=== PATIENT | female | born 1955 | race Caucasian/White ===

== ENCOUNTER 2023-12-03 11:44 | Observation (INO) ==
[2023-12-03] MEDS: ASPIRIN CHEW 324 MG PO STA (12:32)
[2023-12-03 13:02] LABS: Basophils # (auto) 0.04 K/uL (0.00-0.20); Basophils % (auto) 0.7 %; Eosinophils % (auto) 1.8 %; Hematocrit (blood only) 39.5 % (37.0-47.0); Hemoglobin 13.1 g/dl (12.0-16.0); Immature Granulocytes # (auto) 0.01 K/uL (0.01-0.20); Immature Granulocytes % (auto) 0.2 %; Lymphocytes % (auto) 31.3 %; Mean Corpuscular Hemoglobin 30.7 pg (25.0-34.0); Mean Corpuscular Hgb Conc 33.2 g/dL (32.0-36.0); Mean Corpuscular Volume 92.5 fL (80.0-100.0); Mean Platelet Volume 10.3 fL (9.4-12.4); Monocytes # (auto) 0.49 K/uL (0.11-0.59); Neutrophils # (auto) 3.09 K/uL (1.40-6.50); Platelet Count 296 K/uL (130-400); RDW Coefficient of Variation 12.3 % (11.5-14.5); RDW Standard Deviation 41.7 fL (36.4-46.3); Red Blood Count 4.27 M/uL (4.20-5.40); White Blood Count 5.43 K/ul (4.8-10.8)
--- NOTE | 2023-12-03 13:25 | XRay Report ---
XR chest 1V portable CLINICAL HISTORY: Chest pain, nonspecific COMPARISON STUDY: No previous studies for comparison. FINDINGS: Lung volumes are normal. Lungs are clear. There is no pneumothorax or pleural effusion. Car diac size is normal. Mediastinal contours are normal. There is no evidence for pulmonary edema. IMPRESSION: No acute cardiopulmonary findings. ACT 112: Negative or not required by law. Electronically signed by: Judah Walton M.D. 12/03/2023 1:24 PM
[2023-12-03 13:43] LABS: D Dimer 320 ug/L FEU (0-500); Partial Thromboplastin Time 28 Seconds (21-31); Prothrombin Time 11.1 Seconds (9.0-12.0)
--- NOTE | 2023-12-03 14:19 | Electrocardiogram Report ---
Test Reason : Blood Pressure : / mmHG Vent. Rate : 087 BPM Atrial Rate : 087 BPM P-R Int : 158 ms QRS Dur : 082 ms QT Int : 362 ms P-R-T Axes : 075 -04 081 degrees QTc Int : 435 ms Normal sinus rhythm with sinus arrhythmia Normal ECG No previous ECGs available Confirmed by Dedrick Goodman ([id number]) on 12/03/2023 2:18:47 PM Referred By: Confirmed By:Dedrick Goodman
[2023-12-03 14:38] LABS: Potassium 4.2 mmol/L (3.5-5.1)
[2023-12-03 14:44] LABS: BUN Creatinine Ratio 17.6 (10-20); Creatinine Clr Calc Pharmacy 59.3 ml/min; Est GFR (African American) 76.2 ml/min; Est GFR (Non-African American) 65.7 ml/min
[2023-12-03 14:49] LABS: Troponin I High Sensitivity 16.3 pg/ml (0-14)
--- NOTE | 2023-12-03 16:58 | History & Physical Report ---
Date of Service December 03, 2023 Assessment & Plan (1) Paroxysmal supraventricular tachycardia: (2) Elevated troponin: Plan: Patient is 68 year old female with PMH HTN, anxiety, depression presented to ER with complaint of palpitations this morning. EMS noted patient to be in SVT and patient was given adenosine 6 mg and an additional 12 mg with conversion to sinus rhythm In ER patient currently asymptomatic. Current sinus rhythm Troponin: 16--> 74 Suspect elevated troponin secondary to tachycardia, demand ischemia Trend troponin Echo TSH pending EKG in AM Cardiology consult. Dr. Ribeiro saw patient and recommended starting metoprolol daily CBC, BMP in a.m. (3) HTN (hypertension): Plan: BP is elevated in ER 150/92 Continue home olmesartan Monitor BP (4) Anxiety and depression: Plan: Chronic, stable Continue fluoxetine DVT Prophylaxis SCDs Full Code as per discussion with pt Follows with Dr Kiser for routine care Pt was seen and care coordinated with Dr Emanuel. See addendum I spent a total of 75 minutes reviewing notes, outpatient records, labs, medication, coordinating, documenting and providing care for this patient excluding time spent in the performance of separately billed services. History of Present Illness Chief Complaint: palpitations Primary Care Provider: Maryanne Kiser MD Patient is 68 year old female with PMH HTN, anxiety, depression presented to ER with complaint of palpitations. History obtained from patient as well as outpatient chart review. Patient states this morning around 9:30 AM she was moving and table when she had sudden onset of palpitations and dizziness. She reports she sat down and symptoms did not resolve. She reports she had a neighbor come over who is a snack steward who checked her pulse and it was reported to be very tachycardic and EMS was called. There is reported EMS performed EKG which showed SVT and patient was given adenosine 6 mg and an additional 12 mg with conversion to sinus rhythm. Patient states after that palpitations and dizziness resolved. Currently reports is asymptomatic. Patient denies any associated chest pain, syncope, diaphoresis, SOB. States drinks 3 glasses iced tea daily. Yesterday and today had one cup of blueberry tea. Denies decongestant use. Denies fever/chills, diaphoresis, N/V/D/C, QUIÑONES, vision changes, neck pain, orthopnea, cough, sore throat, otalgia, rhinorrhea, abdominal pain, paresthesias, weakness, extremity edema, rashes, urinary symptoms. Allergies Allergy/AdvReac Type Severity Reaction Status Date / Time Sulfa (Sulfonamide Allergy Intermediate Hives Verified 12/03/23 16:32 Antibiotics) erythromycin base Allergy Unknown CAN'T Verified 12/03/23 16:33 REMEMBER Home Medications Medication Instructions Recorded Confirmed Type fluoxetine 10 mg capsule 10 mg PO HS 12/03/23 12/03/23 History fluoxetine 20 mg capsule 20 mg PO HS 12/03/23 12/03/23 History olmesartan 5 mg tablet 5 mg PO HS 12/03/23 12/03/23 History Past Med/Surg History Medical History Anxiety and depression HTN (hypertension) Surgical History History of colonoscopy Family History Other Diabetes Hypertension Social History Smoking Status: Never smoker Second Hand Exposure: No; Do You Dip or Chew Tobacco: No; Hx Alcohol Use: No Hx Substance Use: No Preferred Language: Stateless Communication Ability: Effective Corporate Accounting Manager Required: No Beliefs That Will Affect Care: None Current Living Situation: Spouse and Family Other Information That Helps Us Care for You: No Feels Safe at Home: Yes Safety Concerns: Feels Safe At This Time Assistive Devices: None Review of Systems Review of Systems: All systems reviewed & are unremarkable except as noted in HPI & below Physical Exam Physical Exam: General: no distress, WDWN Head: normocephalic, atraumatic Eyes: conjunctiva non-injected, anicteric ENT: normal inspection external ears, nose, mucous membranes moist Neck: supple, trachea midline Lungs: clear, no respiratory distress, no wheezing/rhonchi/rales CV: RRR, no murmur, no pretibial edema Abd: normal BS, soft, non-tender Ext: no cyanosis, no calf tenderness Neuro: A&O x 3, no focal deficits noted, normal affect Skin: warm, dry Results & Data Results & Data Vital Signs (Past 12 Hours) Vital Signs Temp Pulse Pulse Resp BP BP Pulse Ox 12/03/23 16:30 66 12/03/23 16:04 66 18 150/92 H 98 12/03/23 14:11 69 16 138/84 97 12/03/23 12:30 87 12/03/23 11:57 100 12/03/23 11:57 37.1 C 90 22 146/91 H 100 O2 Del Method 12/03/23 16:30 12/03/23 16:04 Room Air 12/03/23 14:11 Room Air 12/03/23 12:30 12/03/23 11:57 Room Air 12/03/23 11:57 Room Air Laboratory Results Short CBC 12/03/23 Range/Units 11:50 WBC 5.43 (4.8-10.8) K/ul Hgb 13.1 (12.0-16.0) g/dl Hct 39.5 (37.0-47.0) % Plt Count 296 (130-400) K/uL BMP 12/03/23 11:50 Sodium 140 Potassium 4.2 Chloride 106 Carbon Dioxide 27 BUN 16 Creatinine 0.91 Glucose 111 H Calcium 10.0 Diagnostic Findings Chest X-Ray 12/03/23 12:21 XR chest 1V portable CLINICAL HISTORY: Chest pain, nonspecific COMPARISON STUDY: No previous studies for comparison. FINDINGS: Lung volumes are normal. Lungs are clear. There is no pneumothorax or pleural effusion. Cardiac size is normal. Mediastinal contours are normal. There is no evidence for pulmonary edema. IMPRESSION: No acute cardiopulmonary findings. ACT 112: Negative or not required by law. Electronically signed by: Judah Walton M.D. 12/03/2023 1:24 PM ECG Additional Comments: Normal sinus rhythm, rate 87, no significant ST changes noted per my interpretation Supervising Physician Co-Signing Physician Notes I have seen and examined the patient and have discussed the case with the provider above. I have reviewed the advanced practitioner's documentation, and I agree with, and take responsibility for that plan of care. Patient is 68-year-old female with no history of SVT who presented to the ER via EMS with SVT. This started this morning when she was moving piece of furniture. She has no chest pain or shortness of breath and was not feeling ill prior to this. History is otherwise noted above. Cardiology consulted and beta-sujata added to medical regimen. She is hemodynamically stable and afebrile and oxygenating well on room air. She is mentating clearly. Cardiac assessment reveals S1-S2 heard with regular rate and rhythm and no evidence of murmurs gallops or rubs. There is no peripheral edema. Physical exam is otherwise noted above. Workup today reveals a normal CBC, normal coag panel, normal CHEM panel. She does have evidence of a rising highly sensitive troponin likely a sequelae of her tachycardia earlier in the day. She remains chest pain-free and EKG revealed sinus rhythm with no evidence of active ischemia. Echo pending for morning. Continue telemetry monitoring overnight. DO Adelfo
--- NOTE | 2023-12-03 17:39 | Cardiology Consultation ---
Date of Consultation December 03, 2023 Assessment & Plan (1) Paroxysmal supraventricular tachycardia: (2) Elevated troponin: (3) HTN (hypertension): Plan 68-year-old female with underlying history of hypertension but no prior history of cardiac disease who developed sudden onset of tachypalpitations. Mild lightheadedness and chest pressure. EMS summoned with patient found to be in supraventricular tachycardia with rapid ventricular response rate 202 bpm. Patient converted to sinus rhythm with adenosine Troponins were elevated after conversion but no acute EKG changes currently without complaint Blood pressure is mildly Plan: Discussed supraventricular tachycardia in detail with patient for first sustained event. Troponin elevation secondary to high rate and demand. No prior history of ischemic heart Echocardiogram ordered for a.m. Will add beta-sujata to medical regimen Unless significant change on EKG or enzyme likely outpatient evaluation of ischemia with stress testing Discussed indications for SVT ablation, vagal maneuvers and ER presentation with sustained arrhythmia History of Present Illness Reason for Consultation: SVT, elevated troponin Requesting Physician: Dr. Jeronimo History of Present Illness Patient is a 68-year-old female without prior history of cardiac disease. She carries a history of past hypertension on medical therapy, mild chronic anxiety Patient presents this admission noting having developed sensation of tachyp alpitations after low-level activity at home. Noted heart racing very quickly and pounding in chest mild lightheadedness and chest tightness. No syncope or near syncope. EMS summoned and patient found to be in supraventricular tachycardia rate 202 bpm. Patient given adenosine and ambulance with conversion to sinus rhythm. Patient felt immediately improved EKG postconversion normal without preexcitation Cardiac enzymes noted rise in second troponin and patient referred for inpatient management She denies prior history of structural heart disease, myocardial infarction, congestive heart failure. No history rheumatic fever scarlet fever renal hepatic disease. No history of TIA or stroke. Physically very active about home without limitations. Has been aware of occasional sensation of tachypalpitations but usually very brief and self terminating Appetite and weight are stable. Restless sleeper but no acute issues no weight gain or edema Blood pressures have been somewhat labile with change from lisinopril to olmesartan due to cough in May 2020 Allergies Allergy/AdvReac Type Severity Reaction Status Date / Time Sulfa (Sulfonamide Allergy Intermediate Hives Verified 12/03/23 16:32 Antibiotics) erythromycin base Allergy Unknown CAN'T Verified 12/03/23 16:33 REMEMBER Home Medications Medication Instructions Recorded Confirmed Type fluoxetine 10 mg capsule 10 mg PO HS 12/03/23 12/03/23 History fluoxetine 20 mg capsule 20 mg PO HS 12/03/23 12/03/23 History olmesartan 5 mg tablet 5 mg PO HS 12/03/23 12/03/23 History Patient History Social History Smoking Status: Never smoker Feels Safe at Home: Yes Review of Systems Review of Systems: All systems reviewed & are unremarkable except as noted in HPI & below Physical Exam Constitutional: WD/WN, vitals as above Eyes: PERRL, conjunctivae normal, anicteric sclerae ENMT: external ear and nose normal, oropharynx normal Neck: trachea midline, no thyromegaly Respiratory: normal respiratory effort, lungs clear to auscultation Cardiovascular: Rate/Rhythm: regular rate and regular rhythm Heart Sounds: normal S1 and normal S2; no gallop and no murmur Palpation: normal PMI Vessels: normal carotid upstroke and radial pulses present; no JVD and no carotid bruit Extremities: no edema Gastrointestinal (Abdomen): normal bowel sounds, soft, nontender, no hepatosplenomegaly Musculoskeletal: no cyanosis or clubbing, extremities motor strength 5/5 Skin: no rashes, warm and dry Neurologic: PERRL, EOMI, accommodation nl, no face palsy, no dysarthria Psychiatric: A+Ox3, euthymic affect Results & Data Vital Signs (Past 12 Hours) Vital Signs Temp Pulse Pulse Resp BP BP Pulse Ox 12/03/23 16:30 66 12/03/23 16:04 66 18 150/92 H 98 12/03/23 14:11 69 16 138/84 97 12/03/23 12:30 87 12/03/23 11:57 100 12/03/23 11:57 37.1 C 90 22 146/91 H 100 O2 Del Method 12/03/23 16:30 12/03/23 16:04 Room Air 12/03/23 14:11 Room Air 12/03/23 12:30 12/03/23 11:57 Room Air 12/03/23 11:57 Room Air Laboratory Results Laboratory Results - last 24 hr 12/03/23 12/03/23 11:50 15:15 WBC 5.43 RBC 4.27 Hgb 13.1 Hct 39.5 MCV 92.5 MCH 30.7 MCHC 33.2 RDW Std Deviation 41.7 RDW Coeff of Monserrat 12.3 Plt Count 296 MPV 10.3 Immature Gran % (Auto) 0.2 Neut % (Auto) 57.0 Lymph % (Auto) 31.3 [place] % (Auto) 9.0 Eos % (Auto) 1.8 Baso % (Auto) 0.7 Neut # (Auto) 3.09 Lymph # (Auto) 1.70 [place] # (Auto) 0.49 Eos # (Auto) 0.10 Baso # (Auto) 0.04 Immature Gran # (Auto) 0.01 PT 11.1 INR 1.0 APTT 28 PTT Ratio 1.0 D-Dimer 320 Sodium 140 Potassium 4.2 Chloride 106 Carbon Dioxide 27 Anion Gap 7 BUN 16 Creatinine 0.91 Est Cr Clr Drug Dosing 59.3 Est GFR ( Amer) 76.2 Est GFR (Non-Af Amer) 65.7 BUN/Creatinine Ratio 17.6 Glucose 111 H Calcium 10.0 Troponin I High Sens 16.3 H 74.4 H* D Lipase 44
--- NOTE | 2023-12-03 17:59 | Emergency Department Note ---
History of Present Illness General Chief Complaint: Arrhythmia/Palpitations Stated Complaint: CHEST PAIN Time Seen by Provider: 12/03/23 12:01 History of Present Illness Provider Complaint: + palpitations Time: 09:30 Duration: + Now resolved Current Pain Intensity: 0 Context: + occurred during rest Arrhythmia history: no on anti-coagulants Associated symptoms: + chest pain and + near-syncope; no shortness of breath, no syncope, no nausea, no vomiting, no anxiety or no cough Treatments prior to arrival: + adenosine HPI narrative: Patient found to be in SVT via EMS. Patient was given 6 mg of adenosine which did not help and then was given 12 mg of adenosine bolus which broke the patient's SVT into a sinus rhythm. Home Medications Medication Instructions Recorded Confirmed Type fluoxetine 10 mg capsule 10 mg PO HS 12/03/23 12/03/23 History fluoxetine 20 mg capsule 20 mg PO HS 12/03/23 12/03/23 History olmesartan 5 mg tablet 5 mg PO HS 12/03/23 12/03/23 History Allergies Allergy/AdvReac Type Severity Reaction Status Date / Time Sulfa (Sulfonamide Allergy Intermediate Hives Verified 12/03/23 16:32 Antibiotics) erythromycin base Allergy Unknown CAN'T Verified 12/03/23 16:33 REMEMBER Past Med/Surg History Medical History No pertinent family history HTN (hypertension) Surgical History No pertinent past surgical history Social History Smoking Status: Never smoker Feels Safe at Home: Yes Physical Exam 2 Vital Signs: Vital Signs - 24 hr 12/03/23 11:57 12/03/23 11:57 12/03/23 12:30 Temperature 37.1 C Temperature Source Oral Pulse Rate 90 87 Pulse Rate [Right Finger] Respiratory Rate 22 Respiratory Effort / Characteristics Non-Labored Sponta neous Respiratory Depth Normal Blood Pressure 146/91 H Blood Pressure [Ri ght Arm] Blood Pressure Isabel n 109 Blood Pressure Isabel n [Right Arm] Pulse Oximetry 100 100 Oxygen Delivery Me thod Room Air Room Air Sepsis Recent Feve r Within 48 Hours No Sepsis New/Unexpla ined Change in Men zoë Status N/A Sepsis Action Take n by Nursing No Action Required 12/03/23 14:11 12/03/23 16:04 12/03/23 16:30 Temperature Temperature Source Pulse Rate 66 Pulse Rate [Right Finger] 69 66 Respiratory Rate 16 18 Respiratory Effort / Characteristics Non-Labored Sponta neous Non-Labored Respiratory Depth Normal Normal Blood Pressure Blood Pressure [Ri ght Arm] 138/84 150/92 H Blood Pressure Isabel n Blood Pressure Isabel n [Right Arm] 102 111 Pulse Oximetry 97 98 Oxygen Delivery Me thod Room Air Room Air Sepsis Recent Feve r Within 48 Hours Sepsis New/Unexpla ined Change in Men zoë Status Sepsis Action Take n by Nursing Physical Exam: Physical Exam GENERAL: oriented to person, place, and time. appears well-developed and well- nourished. HENT: Exam performed. - Head: Normocephalic and atraumatic. EYES: Conjunctivae and EOM are normal. Right eye exhibits no discharge. Left eye exhibits no discharge. No scleral icterus. NECK: Normal range of motion. Neck supple. No JVD present. CV: Normal rate, regular rhythm, normal heart sounds and intact distal pulses. There is no peripheral edema. Palpable radial pulses bue. PULM/CHEST: Effort normal and breath sounds normal. No respiratory distress. No stridor. no wheezes. no rales. ABD: The abdomen is soft. There is no tenderness. NEURO: Motor and sensation grossly intact. SKIN: Skin is warm and dry. He is not diaphoretic. PSYCH: normal mood and affect. Behavior is normal. Judgment and thought content normal. Course Course 1201: The patient was evaluated in room A10. A complete history and physical exam was performed Cardiac monitoring: An order was placed for continuous cardiac monitoring. The monitor shows a rate of 90 with sinus arrhythmia interpreted by me 1515: Vital signs stable. No chest pain or difficulty breathing. Labs show an elevated troponin of 16.3. D-dimer negative. Will conduct delta troponin as it is thought that the elevated troponin is most likely due to demand ischemia. 1622: Vital signs stable. Patient still reporting no chest pain or difficulty breathing. Repeat troponin 74.4, more than tripled the initial high-sensitivity troponin. Discussed case with Dr. Ribeiro on-call [facility] cardiology who states he still thinks that the elevation in troponin is due to demand ischemia. He recommends no heparin at this time states he will evaluate the patient. Patient will be admitted to the [facility] hospitalist team. Spoke with Armida [facility] hospitalist who stated to admit to Dr. Emanuel. Administered Medications Discontinued Medications Aspirin (Aspirin Chew 324 Mg) 324 mg PO NOW STA Stop: 12/03/23 12:22 Last Admin: 12/03/23 12:32 Dose: 324 mg Documented By: PASTORA Medical Decision Making Medical Records Attestation: I reviewed the patient's medical records. External medical records reviewed. EKGs from EMS: EKG at 1106 shows SVT with rate of 202 QRS [address] depression present. No ST elevation present. Second prehospital EKG via EMS status post bolus adenosine 6 mg followed by adenosine 12 mg: Sinus arrhythmia with a rate of 90. VA 164 QRS [address] elevation mild ST depressions present. Laboratory Data Attestation: I reviewed the patient's lab results. 12/03/23 11:50 12/03/23 11:50 Lab Results 12/03/23 12/03/23 Range/Units 11:50 15:15 WBC 5.43 (4.8-10.8) K/ul RBC 4.27 (4.20-5.40) M/uL Hgb 13.1 (12.0-16.0) g/dl Hct 39.5 (37.0-47.0) % MCV 92.5 (80.0-100.0) fL MCH 30.7 (25.0-34.0) pg MCHC 33.2 (32.0-36.0) g/dL RDW Std Deviation 41.7 (36.4-46.3) fL RDW Coeff of Monserrat 12.3 (11.5-14.5) % Plt Count 296 (130-400) K/uL MPV 10.3 (9.4-12.4) fL Immature Gran % (Auto) 0.2 % Neut % (Auto) 57.0 % Lymph % (Auto) 31.3 % [place] % (Auto) 9.0 % Eos % (Auto) 1.8 % Baso % (Auto) 0.7 % Neut # (Auto) 3.09 (1.40-6.50) K/uL Lymph # (Auto) 1.70 (1.20-3.40) K/uL [place] # (Auto) 0.49 (0.11-0.59) K/uL Eos # (Auto) 0.10 (0.00-0.50) K/uL Baso # (Auto) 0.04 (0.00-0.20) K/uL Immature Gran # (Auto) 0.01 (0.01-0.20) K/uL PT 11.1 (9.0-12.0) Seconds INR 1.0 (0.9-1.1) APTT 28 (21-31) Seconds PTT Ratio 1.0 D-Dimer 320 (0-500) ug/L FEU Sodium 140 (136-145) mmol/L Potassium 4.2 (3.5-5.1) mmol/L Chloride 106 (98-107) mmol/L Carbon Dioxide 27 (21-32) mmol/L Anion Gap 7 (3-11) BUN 16 (6-23) mg/dl Creatinine 0.91 (0.6-1.2) mg/dl Est Cr Clr Drug Dosing 59.3 ml/min Est GFR ( Amer) 76.2 ml/min Est GFR (Non-Af Amer) 65.7 ml/min BUN/Creatinine Ratio 17.6 (10-20) Glucose 111 H (70-99(Fasting)) mg/dl Calcium 10.0 (8.6-10.3) mg/dl Troponin I High Sens 16.3 H 74.4 H* D (0-14) pg/ml Lipase 44 (11-82) U/L Imaging Data Attestation: I personally reviewed and interpreted this imaging study as follows: My Impression: Chest x-ray negative. Airway clear. No pneumothorax. No consolidation. No cardiomegaly or cephalization.. No free air under the diaphragm. No fractures of the skeletal structures. Radiologist's Impression: Chest X-Ray 12/03/23 12:21 XR chest 1V portable CLINICAL HISTORY: Chest pain, nonspecific COMPARISON STUDY: No previous studies for comparison. FINDINGS: Lung volumes are normal. Lungs are clear. There is no pneumothorax or pleural effusion. Cardiac size is normal. Mediastinal contours are normal. There is no evidence for pulmonary edema. IMPRESSION: No acute cardiopulmonary findings. ACT 112: Negative or not required by law. Electronically signed by: Judah Walton M.D. 12/03/2023 1:24 PM ECG Data Attestation: I personally reviewed and interpreted this ECG as follows: Indication: chest pain and palpitations Rate (beats per minute): 87 Rhythm: normal sinus Findings: no ST depression, no ST elevation or no prolonged QT [facility] Narrative 1201: The patient was evaluated in room A10. A complete history and physical exam was performed Cardiac monitoring: An order was placed for continuous cardiac monitoring. The monitor shows a rate of 90 with sinus arrhythmia interpreted by me 1515: Vital signs stable. No chest pain or difficulty breathing. Labs show an elevated troponin of 16.3. D-dimer negative. Will conduct delta troponin as it is thought that the elevated troponin is most likely due to demand ischemia. 1622: Vital signs stable. Patient still reporting no chest pain or difficulty breathing. Repeat troponin 74.4, more than tripled the initial high-sensitivity troponin. Discussed case with Dr. Ribeiro on-call [facility] cardiology who states he still thinks that the elevation in troponin is due to demand ischemia. He recommends no heparin at this time states he will evaluate the patient. Patient will be admitted to the [facility] hospitalist team. Spoke with Armida [facility] hospitalist who stated to admit to Dr. Emanuel. Impression & Plan Paroxysmal supraventricular tachycardia, Elevated troponin Discharge Plan Visit Data Chief Complaint: Arrhythmia/Palpitations Stated Complaint: CHEST PAIN ED Provider: Partha Jeronimo Discharge Problem: Paroxysmal supraventricular tachycardia, Elevated troponin Patient Disposition: Admitted As Inpatient Forms Stand Alone Forms: [facility] Prescriptions Prescriptions: No Action fluoxetine 10 mg capsule 10 mg PO HS Rx Instructions: TOTAL DOSE 30 MG--TAKES WITH 20 MG CAP. PER PT "NORMALLY TAKES AT HS, BUT FORGOT LAST NIGHT SO TOOK IT THIS AM". fluoxetine 20 mg capsule 20 mg PO HS Rx Instructions: TOTAL DOSE 30 MG--TAKES WITH 10 MG CAP. PER PT "NORMALLY TAKES AT HS, BUT FORGOT LAST NIGHT SO TOOK IT THIS AM". olmesartan 5 mg tablet 5 mg PO HS Rx Instructions: PER PT "NORMALLY TAKES AT HS, BUT FORGOT LAST NIGHT SO TOOK IT THIS AM". Referrals Referrals: Sadiq Tinsley MD [Primary Care Provider] -
[2023-12-03] MEDS ORDERED: ACETAMINOPHEN 325 MG TAB PO PRN (18:57)
[2023-12-03] MEDS ORDERED: POLYETHYLENE (MIRALAX) 17 GM PACK PO PRN (18:57)
[2023-12-03] MEDS: METOPROLOL SUCC 25MG EXT REL TAB PO SCH (19:52)
[2023-12-03 21:33] LABS: Thyroid Stimulating Hormone 7.695 uIu/ml (0.300-4.500)
[2023-12-03 22:09] LABS: T4 Free Thyroxine 0.88 ng/dl (0.61-1.60)
[2023-12-04] MEDS: LOSARTAN POTASSIUM 25 MG TAB PO SCH (00:16)
[2023-12-04 04:14] LABS: Hematocrit (blood only) 37.4 % (37.0-47.0); Hemoglobin 12.8 g/dl (12.0-16.0); Mean Corpuscular Hemoglobin 31.3 pg (25.0-34.0); Mean Corpuscular Hgb Conc 34.2 g/dL (32.0-36.0); Mean Corpuscular Volume 91.4 fL (80.0-100.0); Mean Platelet Volume 10.1 fL (9.4-12.4); Platelet Count 297 K/uL (130-400); RDW Coefficient of Variation 12.6 % (11.5-14.5); Red Blood Count 4.09 M/uL (4.20-5.40); White Blood Count 5.48 K/ul (4.8-10.8)
[2023-12-04 04:28] LABS: Calcium 9.5 mg/dl (8.6-10.3); Creatinine Clr Calc Pharmacy 56.6 ml/min; Est GFR (African American) 79.4 ml/min; Est GFR (Non-African American) 68.5 ml/min; Potassium 4.3 mmol/L (3.5-5.1)
--- NOTE | 2023-12-04 07:22 | Hospitalist Progress Note ---
Date of Service December 04, 2023 Assessment & Plan (1) Paroxysmal supraventricular tachycardia: (2) Elevated troponin: Plan: Patient is 68 year old female with PMH HTN, anxiety, depression presented to ER with complaint of palpitations this morning. EMS noted patient to be in SVT and patient was given adenosine 6 mg and an additional 12 mg with conversion to sinus rhythm In ER patient asymptomatic, in sinus rhythm Troponin: 16--> 74 -> 98 -> 86 Suspect elevated troponin secondary to tachycardia, demand ischemia Echo obtained - sinus bradycardia in the 50s was present during echocardiogram study. LV wall motion is abnormal. LV systolic function is normal. LVEF 55 to 60%. RV is normal in size and function. There is mild to moderate tricuspid regurg. The pulmonary systolic pressure is estimated to be 27 mmHg. LV diastolic function is normal. TSH 7.6 (mildly up), T4 0.88 (wnl) Cardiology consulted and discussed with. Dr. Ribeiro saw patient on admission and recommended starting metoprolol daily. Patient is currently on metoprolol succinate 25 daily. * Plan for outpatient stress testing, low intensity exercise/Lexiscan nuclear protocol. Will place order and arrange for follow-up to take place after the stress test. (3) HTN (hypertension): Plan: BP in ER 150/92, currently at goal 119/71 Continue home olmesartan Monitor BP (4) Anxiety and depression: Plan: Chronic, stable Continue fluoxetine DVT Prophylaxis SCDs Full Code as per discussion with pt Follows with Dr Kiser for routine care Admission and Anticipated Discharge Date Admission Date: December 03, 2023 Subjective Pt seen in follow up of SVT Cardiology consulted and discussed with, beta-sujata started, echo obtained this AM Patient is currently sitting up in bed, in no acute distress. She feels well. Denies any palpitations chest pain shortness of breath. Denies any dizziness. She has been walking around, and feeling well. Review of Systems Review of Systems: All systems reviewed & are unremarkable except as noted in Subjective Physical Exam Physical Exam: General: WDWN F in NAD Head: normocephalic, atraumatic Eyes: conjunctiva non-injected, anicteric ENT: normal inspection external ears, nose, mucous membranes moist Neck: supple Lungs: clear, no respiratory distress, no wheezing/rhonchi/rales CV: RRR, no murmur, no pretibial edema Abd: normal BS, soft, non-tender Ext: no LE edema, moves extremities Neuro: A&O x 3, no focal deficits noted, normal affect Skin: warm, dry Results & Data Results & Data Vital Signs (Past 12 Hours) Vital Signs Temp Pulse Pulse Resp BP Pulse Ox O2 Del Method 12/04/23 07:10 36.7 C 70 18 127/74 95 Room Air 12/04/23 03:34 36.6 C 72 16 95/59 L 96 Room Air 12/04/23 00:27 66 12/03/23 23:37 36.8 C 78 16 112/69 97 Room Air 12/03/23 19:29 36.7 C 64 16 158/98 H 100 Room Air Laboratory Results 12/04/23 12/03/23 12/03/23 Range/Units 03:39 20:37 15:15 WBC 5.48 (4.8-10.8) K/ul RBC 4.09 L (4.20-5.40) M/uL Hgb 12.8 (12.0-16.0) g/dl Hct 37.4 (37.0-47.0) % MCV 91.4 (80.0-100.0) fL MCH 31.3 (25.0-34.0) pg MCHC 34.2 (32.0-36.0) g/dL RDW Std Deviation 42.0 (36.4-46.3) fL RDW Coeff of Monserrat 12.6 (11.5-14.5) % Plt Count 297 (130-400) K/uL MPV 10.1 (9.4-12.4) fL Immature Gran % (Auto) % Neut % (Auto) % Lymph % (Auto) % Toole % (Auto) % Eos % (Auto) % Baso % (Auto) % Neut # (Auto) (1.40-6.50) K/uL Lymph # (Auto) (1.20-3.40) K/uL Toole # (Auto) (0.11-0.59) K/uL Eos # (Auto) (0.00-0.50) K/uL Baso # (Auto) (0.00-0.20) K/uL Immature Gran # (Auto) (0.01-0.20) K/uL PT (9.0-12.0) Seconds INR (0.9-1.1) APTT (21-31) Seconds PTT Ratio D-Dimer (0-500) ug/L FEU Sodium 139 (136-145) mmol/L Potassium 4.3 (3.5-5.1) mmol/L Chloride 106 (98-107) mmol/L Carbon Dioxide 28 (21-32) mmol/L Anion Gap 5 (3-11) BUN 15 (6-23) mg/dl Creatinine 0.88 (0.6-1.2) mg/dl Est Cr Clr Drug Dosing 56.6 ml/min Est GFR ( Amer) 79.4 ml/min Est GFR (Non-Af Amer) 68.5 ml/min BUN/Creatinine Ratio 17.0 (10-20) Glucose 83 (70-99(Fasting)) mg/dl Calcium 9.5 (8.6-10.3) mg/dl Troponin I High Sens 86.8 H* D 98.8 H* D 74.4 H* D (0-14) pg/ml Lipase (11-82) U/L TSH 7.695 H (0.300-4.500) uIu/ml Free T4 0.88 (0.61-1.60) ng/dl 12/03/23 Range/Units 11:50 WBC 5.43 (4.8-10.8) K/ul RBC 4.27 (4.20-5.40) M/uL Hgb 13.1 (12.0-16.0) g/dl Hct 39.5 (37.0-47.0) % MCV 92.5 (80.0-100.0) fL MCH 30.7 (25.0-34.0) pg MCHC 33.2 (32.0-36.0) g/dL RDW Std Deviation 41.7 (36.4-46.3) fL RDW Coeff of Monserrat 12.3 (11.5-14.5) % Plt Count 296 (130-400) K/uL MPV 10.3 (9.4-12.4) fL Immature Gran % (Auto) 0.2 % Neut % (Auto) 57.0 % Lymph % (Auto) 31.3 % Toole % (Auto) 9.0 % Eos % (Auto) 1.8 % Baso % (Auto) 0.7 % Neut # (Auto) 3.09 (1.40-6.50) K/uL Lymph # (Auto) 1.70 (1.20-3.40) K/uL Toole # (Auto) 0.49 (0.11-0.59) K/uL Eos # (Auto) 0.10 (0.00-0.50) K/uL Baso # (Auto) 0.04 (0.00-0.20) K/uL Immature Gran # (Auto) 0.01 (0.01-0.20) K/uL PT 11.1 (9.0-12.0) Seconds INR 1.0 (0.9-1.1) APTT 28 (21-31) Seconds PTT Ratio 1.0 D-Dimer 320 (0-500) ug/L FEU Sodium 140 (136-145) mmol/L Potassium 4.2 (3.5-5.1) mmol/L Chloride 106 (98-107) mmol/L Carbon Dioxide 27 (21-32) mmol/L Anion Gap 7 (3-11) BUN 16 (6-23) mg/dl Creatinine 0.91 (0.6-1.2) mg/dl Est Cr Clr Drug Dosing 59.3 ml/min Est GFR ( Amer) 76.2 ml/min Est GFR (Non-Af Amer) 65.7 ml/min BUN/Creatinine Ratio 17.6 (10-20) Glucose 111 H (70-99(Fasting)) mg/dl Calcium 10.0 (8.6-10.3) mg/dl Troponin I High Sens 16.3 H (0-14) pg/ml Lipase 44 (11-82) U/L TSH (0.300-4.500) uIu/ml Free T4 (0.61-1.60) ng/dl Medications Administered Current Inpatient Medications Acetaminophen (Acetaminophen 325 Mg Tab) 650 mg PO Q4H PRN PRN Reason: Pain or Fever Stop: 01/02/24 18:56 Fluoxetine HCl (Fluoxetine Hcl 10 Mg Cap) 10 mg PO HS JANE Stop: 01/03/24 20:59 Fluoxetine HCl (Fluoxetine Hcl 20 Mg Cap) 20 mg PO HS JANE Stop: 01/03/24 20:59 Losartan Potassium (Losartan Potassium 25 Mg Tab) 12.5 mg PO HS JANE Stop: 01/02/24 20:59 Last Admin: 12/04/23 00:16 Dose: Not Given Metoprolol Succinate (Metoprolol Succ 25mg Ext Rel Tab) 25 mg PO QAM [facility] Stop: 01/02/24 17:44 Last Admin: 12/03/23 19:52 Dose: 25 mg Polyethylene Glycol (Polyethylene (Miralax) 17 Gm Pack) 17 gm PO DAILY PRN PRN Reason: Constipation Stop: 01/02/24 18:56
--- NOTE | 2023-12-04 14:14 | Cardiology Progress Note ---
Date of Service December 04, 2023 Assessment & Plan (1) Paroxysmal supraventricular tachycardia: (2) Elevated troponin: (3) HTN (hypertension): (4) Tricuspid regurgitation: Plan 68-year-old female with underlying history of hypertension but no prior history of cardiac disease who developed sudden onset of tachypalpitations. Mild lightheadedness and chest pressure. EMS summoned with patient found to be in supraventricular tachycardia with rapid ventricular response rate 202 bpm. Patient converted to sinus rhythm with adenosine Troponin levels were elevated after conversion but no acute EKG changes. In terms of her family history, patient states that her father had a heart valve surgery due to a congenital valve problem. She has a grandson that of complex congenital heart disease at age 3.5 years. No family history of coronary heart disease or sudden cardiac . Normal left ventricular wall motion and normal LVEF in the range of 55-60%. The right ventricular chamber size and systolic function is normal. Mild to moderate tricuspid regurgitation is present. The pulmonary systolic pressure is estimated be 27 mm Hg (normal). Left ventricular systolic function is normal. Plan: * Patient encouraged to ambulate in the hallway * If feels well after ambulating, plan for discharge on metoprolol succinate 25 mg daily * Plan for outpatient stress testing, low intensity exercise/Lexiscan nuclear protocol. Will place order and arrange for follow-up to take place after the stress test. * Case discussed with Dr. Russell for the purpose of coordination of care Admission and Anticipated Discharge Date Admission Date: December 03, 2023 Subjective Patient seen in cardiology follow-up with initial consultation having been per formed by Dr. Ribeiro yesterday. Telemetry overnight last night revealed sinus bradycardia in the range of 40 to 50 bpm with no recurrence of atrial arrhythmias. Patient feeling well overnight and again today. Physical Exam Constitutional: WD/WN, vitals as above Eyes: PERRL, conjunctivae normal, anicteric sclerae ENMT: external ear and nose normal, oropharynx normal Neck: trachea midline, no thyromegaly Respiratory: normal respiratory effort, lungs clear to auscultation Cardiovascular: Rate/Rhythm: regular rate and regular rhythm Heart Sounds: normal S1 and normal S2; no gallop and no murmur Palpation: normal PMI Vessels: normal carotid upstroke and radial pulses present; no JVD and no carotid bruit Extremities: no edema Gastrointestinal (Abdomen): normal bowel sounds, soft, nontender, no hepatosplenomegaly Skin: no rashes, warm and dry Neurologic: PERRL, EOMI, accommodation nl, no face palsy, no dysarthria Psychiatric: A+Ox3, euthymic affect Results & Data Vital Signs (Past 12 Hours) Vital Signs Temp Pulse Pulse Resp BP Pulse Ox O2 Del Method 12/04/23 12:54 36.7 C 56 L 16 111/69 99 12/04/23 11:31 36.7 C 56 L 16 111/69 99 Room Air 12/04/23 08:56 53 L 12/04/23 07:31 36.4 C L 71 18 119/71 99 Room Air 12/04/23 07:10 36.7 C 70 18 127/74 95 Room Air 12/04/23 03:34 36.6 C 72 16 95/59 L 96 Room Air Laboratory Results Cardiac Enzymes 12/03/23 12/03/23 12/03/23 Range/Units 11:50 15:15 20:37 Troponin I High Sens 16.3 H 74.4 H* D 98.8 H* D (0-14) pg/ml 12/04/23 Range/Units 03:39 Troponin I High Sens 86.8 H* D (0-14) pg/ml CBC 12/04/23 Range/Units 03:39 WBC 5.48 (4.8-10.8) K/ul RBC 4.09 L (4.20-5.40) M/uL Hgb 12.8 (12.0-16.0) g/dl Hct 37.4 (37.0-47.0) % Plt Count 297 (130-400) K/uL Comprehensive Metabolic Panel 12/03/23 12/04/23 Range/Units 11:50 03:39 Sodium 140 139 (136-145) mmol/L Potassium 4.2 4.3 (3.5-5.1) mmol/L Chloride 106 106 (98-107) mmol/L Carbon Dioxide 27 28 (21-32) mmol/L BUN 16 15 (6-23) mg/dl Creatinine 0.91 0.88 (0.6-1.2) mg/dl Glucose 111 H 83 (70-99(Fasting)) mg/dl Calcium 10.0 9.5 (8.6-10.3) mg/dl Intake and Output 12/03/23 12/04/23 12/04/23 22:59 06:59 14:59 Intake Total 360 / 360 Balance 360 / 360 Intake: Oral 360 / 360 Other: # Unmeasured Voids 1 3 Weight 58.967 kg 59.4 kg 59.4 kg Weight Measurement Method Built in Bedscale Standing Scale Patient Weight 12/05/23 06:59 Weight 59.4 kg Diagnostic Findings EKG performed today 12/04/2023 at 5:21 AM and interpreted independently: Sinus bradycardia at 59 bpm, nonspecific T wave abnormality limited to lead V2. Compared to previous, no significant interval change.
--- NOTE | 2023-12-04 15:20 | Discharge Summary ---
Date of Service December 04, 2023 Admission HPI Per Admitting Provider Patient is 68 year old female with PMH HTN, anxiety, depression presented to ER with complaint of palpitations. History obtained from patient as well as outpatient chart review. Patient states this morning around 9:30 AM she was moving and table when she had sudden onset of palpitations and dizziness. She reports she sat down and symptoms did not resolve. She reports she had a neighbor come over who is a online merchandising manager who checked her pulse and it was reported to be very tachycardic and EMS was called. There is reported EMS performed EKG which showed SVT and patient was given adenosine 6 mg and an additional 12 mg with conversion to sinus rhythm. Patient states after that palpitations and dizziness resolved. Currently reports is asymptomatic. Patient denies any associated chest pain, syncope, diaphoresis, SOB. States drinks 3 glasses iced tea daily. Yesterday and today had one cup of blueberry tea. Denies decongestant use. Denies fever/chills, diaphoresis, N/V/D/C, QUIÑONES, vision changes, neck pain, orthopnea, cough, sore throat, otalgia, rhinorrhea, abdominal pain, paresthesias, weakness, extremity edema, rashes, urinary symptoms. Admission Exam Per Admitting Provider General: no distress, WDWN Head: normocephalic, atraumatic Eyes: conjunctiva non-injected, anicteric ENT: normal inspection external ears, nose, mucous membranes moist Neck: supple, trachea midline Lungs: clear, no respiratory distress, no wheezing/rhonchi/rales CV: RRR, no murmur, no pretibial edema Abd: normal BS, soft, non-tender Ext: no cyanosis, no calf tenderness Neuro: A&O x 3, no focal deficits noted, normal affect Skin: warm, dry Principal Diagnosis SVT Discharge Exam General: WDWN F in NAD Head: normocephalic, atraumatic Eyes: conjunctiva non-injected, anicteric ENT: normal inspection external ears, nose, mucous membranes moist Neck: supple Lungs: clear, no respiratory distress, no wheezing/rhonchi/rales CV: RRR, no murmur, no pretibial edema Abd: normal BS, soft, non-tender Ext: no LE edema, moves extremities Neuro: A&O x 3, no focal deficits noted, normal affect Skin: warm, dry Discharge Data Allergies Allergy/AdvReac Type Severity Reaction Status Date / Time Sulfa (Sulfonamide Allergy Intermediate Hives Verified 12/03/23 16:32 Antibiotics) erythromycin base Allergy Unknown CAN'T Verified 12/03/23 16:33 REMEMBER Consultations 12/03/23 16:16 ED Decision to Admit Stat 12/03/23 18:57 Consult Cardiology Routine Hospital Course (1) Paroxysmal supraventricular tachycardia: (2) Elevated troponin: Patient is 68 year old female with PMH HTN, anxiety, depression presented to ER with complaint of palpitations this morning. EMS noted patient to be in SVT and patient was given adenosine 6 mg and an additional 12 mg with conversion to sinus rhythm In ER patient asymptomatic, in sinus rhythm Troponin: 16--> 74 -> 98 -> 86 Suspect elevated troponin secondary to tachycardia, demand ischemia Echo obtained - sinus bradycardia in the 50s was present during echocardiogram study. LV wall motion is abnormal. LV systolic function is normal. LVEF 55 to 60%. RV is normal in size and function. There is mild to moderate tricuspid regurg. The pulmonary systolic pressure is estimated to be 27 mmHg. LV diastolic function is normal. TSH 7.6 (mildly up), T4 0.88 (wnl) Cardiology consulted and discussed with. Dr. Ribeiro saw patient on admission and recommended starting metoprolol daily. Patient is currently on metoprolol succinate 25 daily. * Plan for outpatient stress testing, low intensity exercise/Lexiscan nuclear protocol. Will place order and arrange for follow-up to take place after the stress test. (3) HTN (hypertension): BP in ER 150/92, currently at goal 119/71 Continue home olmesartan Monitor BP (4) Anxiety and depression: Chronic, stable Continue fluoxetine Total Time Total Time Spent Total Time Spent (In Minutes): 40 Discharge Plan Discharge Items Patient Disposition: Home - Self-Care Reason For Visit: SVT Discharge Diagnosis: SVT Activity: Per Instructions section Non-emergency contact: Primary Care Provider and Post Graduate Intern Call non-emergency contact if: you have any medication questions and your symptoms worsen Follow-up/Referrals: Sadiq Tinsley MD [Primary Care Provider] - Diet: Heart Healthy Addtl Attending Provider Instructions: Follow up with your primary care doctor and market research specialist. You were started on a new medication - metoprolol - take it as prescribed. You should follow up with your primary care doctor within 1-2 weeks. You will be contacted by cardiology office about your appointment with them. Pending Studies at Discharge: No Stand-Alone Forms: My [facility], Smoking Cessation Medications and DC Order Prescriptions: New metoprolol succinate 25 mg Tablet Extended Release 24 Hr 25 mg PO QAM Qty: 30 0RF Continued fluoxetine 10 mg capsule 10 mg PO HS Rx Instructions: TOTAL DOSE 30 MG--TAKES WITH 20 MG CAP. PER PT "NORMALLY TAKES AT HS, BUT FORGOT LAST NIGHT SO TOOK IT THIS AM". fluoxetine 20 mg capsule 20 mg PO HS Rx Instructions: TOTAL DOSE 30 MG--TAKES WITH 10 MG CAP. PER PT "NORMALLY TAKES AT HS, BUT FORGOT LAST NIGHT SO TOOK IT THIS AM". olmesartan 5 mg tablet 5 mg PO HS Rx Instructions: PER PT "NORMALLY TAKES AT HS, BUT FORGOT LAST NIGHT SO TOOK IT THIS AM". Discharge Orders: Discharge Order (Routine); Ordered 12/04/23 Ordered By: Dirk Russell Admission Data Admit Date/Time: 12/03/23 17:15 Attending Provider: Dirk Russell Admit Provider: Abena Emanuel Primary Care Provider: Sadiq Tinsley Other Providers: Abena Emanuel; Augusto Ribeiro Other Interventions: Discharge Summary Assessment (RN) Last Done: 12/04/23 12:54
--- NOTE | 2023-12-04 16:48 | Electrocardiogram Report ---
Test Reason : Blood Pressure : / mmHG Vent. Rate : 063 BPM Atrial Rate : 063 BPM P-R Int : 164 ms QRS Dur : 078 ms QT Int : 424 ms P-R-T Axes : 066 013 068 degrees QTc Int : 433 ms Normal sinus rhythm Possible Left atrial enlargement Borderline ECG When compared with ECG of 03-DEC-2023 11:49, No significant change was found Confirmed by Kenn Lainez ([id number]) on 12/04/2023 4:48:28 PM Referred By: REFERRED SELF Confirmed By:Kenn Lainez
--- NOTE | 2023-12-04 18:13 | Electrocardiogram Report ---
Test Reason : Blood Pressure : / mmHG Vent. Rate : 059 BPM Atrial Rate : 059 BPM P-R Int : 172 ms QRS Dur : 078 ms QT Int : 454 ms P-R-T Axes : 076 034 061 degrees QTc Int : 449 ms Poor data quality, interpretation may be adversely affected Sinus bradycardia Possible Left atrial enlargement Nonspecific T wave abnormality Abnormal ECG When compared with ECG of 03-DEC-2023 17:49, (unconfirmed) No significant change was found Confirmed by Kenn Lainez ([id number]) on 12/04/2023 6:13:38 PM Referred By: REFERRED SELF Confirmed By:Kenn Lainez
[2023-12-04] MEDS ORDERED: FLUoxetine HCL 10 MG CAP PO SCH (21:00)
[2023-12-04] MEDS ORDERED: FLUoxetine HCL 20 MG CAP PO SCH (21:00)
== END 2023-12-04 16:09 | disposition home or self-care (01) ==
LOC: ED 11:44 → SUATTDRO 17:15 → 2S 17:15 → INTOOBSV 17:15 → 2S 18:33